=== PATIENT | female | born 1950 | race Caucasian/White ===

== ENCOUNTER → 2016-11-16 | Outpatient (CLI) | payer OTHER | LOC: BRMIMAGING 08:56 | PROVIDERS: ATTEND Physician Assistant Medical | DX: S92.351A Displaced fracture of fifth metatarsal bone, right foot, initial encounter for closed fracture (principal); W19.XXXA Unspecified fall, initial encounter; R93.8 Abnormal findings on diagnostic imaging of other specified body structures | CPT/HCPCS: 73630-PO ==

== ENCOUNTER → 2017-06-25 | Outpatient (CLI) | payer OTHER | LOC: BRMIMAGING 14:24 | PROVIDERS: ATTEND Physician Assistant Medical | DX: Z12.31 Encounter for screening mammogram for malignant neoplasm of breast (principal) ==

== ENCOUNTER → 2018-08-04 | Outpatient (CLI) | payer OTHER | LOC: BRMIMAGING 13:35 | PROVIDERS: ATTEND Physician Assistant Medical | DX: Z13.820 Encounter for screening for osteoporosis (principal); Z78.0 Asymptomatic menopausal state ==